=== PATIENT | male | born 1970 | race African-American/Black ===

== ENCOUNTER 2018-08-16 07:28 | Day surgery (SDC) | payer OTHER ==
[2018-08-16] MEDS ORDERED: FENTAnyl 50 MCG/ML VIAL (09:31)
[2018-08-16] MEDS ORDERED: MIDAZOLAM 1 MG/ML 2 ML INJ ×2 (09:32)
== END 2018-08-16 14:49 | disposition home or self-care (01) ==
LOC: GIL 07:28
DX: R19.7 Diarrhea, unspecified (principal)
CPT/HCPCS: 45378; 88305